=== PATIENT | male | born 1995 | race Caucasian/White ===

== ENCOUNTER 2016-06-14 15:30 | Emergency (ER) | payer OTHER ==
[2016-06-14 18:04] LABS: HEMOGLOBIN 15.4 gm/dl (14.0-17.5); RED BLOOD COUNT 5.37 M/UL (4.20-5.50); WHITE BLOOD COUNT 6.8 K/UL (4.5-11.0)
[2016-06-14 18:23] LABS: BUN/CREATININE RATIO 19 (0-10)
== END 2016-06-14 19:14 | disposition home or self-care (01) ==
LOC: ER1 15:30
PROVIDERS: Emergency Medicine
DX: R42 Dizziness and giddiness (principal); R53.1 Weakness; R51 Headache; H53.8 Other visual disturbances; I10 Essential (primary) hypertension; Z79.899 Other long term (current) drug therapy
CPT/HCPCS: 36415; 70450; 80048; 85025; 99284

== ENCOUNTER 2016-12-28 20:58 | Emergency (ER) | payer OTHER | END 2016-12-28 22:19 | disposition home or self-care (01) | LOC: ER1 20:58 | DX: S61.210A Laceration without foreign body of right index finger without damage to nail, initial encounter (principal); W26.0XXA Contact with knife, initial encounter; Y92.009 Unspecified place in unspecified non-institutional (private) residence as the place of occurrence of the external cause | CPT/HCPCS: 12001; 99283 ==

== ENCOUNTER 2021-08-07 19:59 | Emergency (ER) | payer OTHER ==
[~2021-08-07 19:59] MED LIST: BACTRIM DS TAB1 EACH PO; BACTROBAN NASAL1 G1 TOP; CLARITIN10 MG PO; FELDENE10 MG PO; FLAGYL500 MG PO; FLONASE 0.05% N16 GM; IBUPROFEN400 MG PO; IBUPROFEN600 MG PO; NAPROSYN500 MG PO; ONDANSETRON ODT4 MG SL; PREDNISONE 50 M50 MG PO; ZOFRAN ODT4 MG PO
[2021-08-08] MEDS ORDERED: PEPCID20 MG PO (12:06)
== END 2021-08-07 20:46 | disposition left against medical advice (07) ==
LOC: ER1 19:59
DX: Z53.21 Procedure and treatment not carried out due to patient leaving prior to being seen by health care provider (principal)

== ENCOUNTER 2021-08-08 07:31 | Emergency (ER) | payer OTHER ==
[2021-08-08 09:11] LABS: HEMOGLOBIN 15.5 gm/dl (14.0-17.5); RED BLOOD COUNT 5.36 M/UL (4.20-5.50); WHITE BLOOD COUNT 4.3 K/UL (4.5-11.0)
[2021-08-08 09:27] LABS: BUN/CREATININE RATIO 23 (0-10)
[2021-08-08] MEDS ORDERED: PEPCID20 MG PO (12:06)
== END 2021-08-08 12:20 | disposition home or self-care (01) ==
LOC: ER1 07:31
PROVIDERS: Emergency Medicine
DX: R07.9 Chest pain, unspecified (principal)
CPT/HCPCS: 71045; 80053; 83690; 84484; 85025; 93005; 99285

== ENCOUNTER → 2021-12-17 | Outpatient (CLI) | payer OTHER ==
[~2021-12-17] MED LIST changes: +PEPCID20 MG PO
[2021-12-17 10:32] LABS: RED BLOOD COUNT 5.16 M/UL (4.20-5.50)
[2021-12-17 11:04] LABS: BUN/CREATININE RATIO 16 (0-10)
== END ==
LOC: LAB 09:55
PROVIDERS: Nurse Practitioner
DX: Z13.9 Encounter for screening, unspecified (principal); R42 Dizziness and giddiness
CPT/HCPCS: 36415; 80053; 80061; 84439; 84443; 85025